=== PATIENT | female | born 1955 | race Caucasian/White ===

== ENCOUNTER 2020-05-11 10:19 | Emergency (ER) | payer MEDICARE, SELFPAY ==
[~2020-05-11] VITALS: Ht 167.6 cm; Wt 130.0 kg
--- NOTE | 2020-05-11 10:34 | NUR ---
PT WENT TO URGENT CARE FOR TX FOR AN UTI. THE URGENT CARE SENT HER TO THE ER DUE TO COUGH, HEADACHE AND FEVER. PT STATES SHE HAS HAD THE COUGH FOR WEEKS, BUT DENIES HAVING A FEVER THAT SHE IS AWARE OF. PT HAD A RAPID COVID A WEEK AGO THROUGH THE DRIVE THROUGH SWABBING AND RESULTS WERE NEGATIVE AT THAT TIME. PT ALSO STATES SHE HAS DENTAL PAIN FROM ROTTING TEETH AND YEAST INFECTION IN HER MOUTH (DX BY URGENT CARE PROVIDER). IN ADDITION, PT HAS RASH UNDER HER BREASTS. PT PLACED ON MONITOR. AWAITING FURTHER ORDERS.
--- NOTE | 2020-05-11 11:09 | NUR ---
COVID SWAB COLLECTED, STRAIGHT CATH PERFORMED, SAMPLES WALKED TO LAB
[2020-05-11 11:26] LABS: BASOPHILS # (AUTO) 0.05 x10^3/uL (0-0.1); BASOPHILS % (AUTO) 1 % (0-1); EOSINOPHILS # (AUTO) 0.03 x10^3/uL (0-0.4); EOSINOPHILS % (AUTO) 0 % (1-7); LYMPHOCYTES # (AUTO) 1.22 x10^3/uL (1-3.4); LYMPHOCYTES % (AUTO) 13 % (22-44); MD NO; MEAN CORPUSCULAR HEMOGLOBIN 28.5 pg (27.0-34.8); MEAN CORPUSCULAR HGB CONC 32.1 g/dL (32.4-35.8); MEAN PLATELET VOLUME 6.9 fL (7.4-10.4); MONOCYTES # (AUTO) 0.69 x10^3/uL (0.2-0.8); MONOCYTES % (AUTO) 7 % (2-9); NEUTROPHILS # (AUTO) 7.77 x10^3/uL (1.8-6.8); NEUTROPHILS % (AUTO) 80 % (42-75); PLATELET COUNT 286 x10^3/uL (130-400); RED BLOOD COUNT 4.75 x10^6/uL (3.82-5.3); RED CELL DISTRIBUTION WIDTH 14.3 % (9.6-15.2)
[2020-05-11 11:39] LABS: ALBUMIN 3.1 g/dL (3.4-5.0); ANION GAP 6 mmol/L (5-15); CALCIUM 8.9 mg/dL (8.5-10.1); CHLORIDE 106 mmol/L (98-107); CREATININE 0.99 mg/dL (0.55-1.02)
[2020-05-11 11:43] LABS: TROPONIN I < 0.015 ng/mL (0.000-0.045)
[2020-05-11 11:49] LABS: MICROSCOPIC INDICATED
--- NOTE | 2020-05-11 12:21 | NUR ---
PT RESTING ON GURNEY AT THIS TIME, PT WITH NO NEEDS AT THIS TIME, NAD
--- NOTE | 2020-05-11 13:05 | NUR ---
Doris burciaga in [facility] - 05/11/20 at 1327 by JULIENNE REPORT FROM [facility]
[2020-05-11 13:35] VITALS: BP 140/73
--- NOTE | 2020-05-11 14:28 | NUR ---
Patient given discharge instructions and they have confirmed that they understand the instructions. Patient ambulatory with steady gait.
== END 2020-05-11 14:29 | disposition home or self-care (01) ==
LOC: ED 11:29
DX: R53.1 Weakness (principal); N30.01 Acute cystitis with hematuria; R05 Cough; Z20.828 Contact with and (suspected) exposure to other viral communicable diseases; R94.31 Abnormal electrocardiogram [ECG] [EKG]; R06.02 Shortness of breath
CPT/HCPCS: 36415; 71045; 80048; 81001; 82040; 84484; 85025; 87077; 87086; 87186; 87635; 93005; 99285